=== PATIENT | male | born 1995 | race Caucasian/White ===

== ENCOUNTER 2019-11-03 12:20 | Emergency (ER) | payer OTHER ==
[~2019-11-03] VITALS: Ht 165.1 cm; Wt 68.0 kg
--- NOTE | 2019-11-03 13:01 | NUR ---
officer mann #[id number] and sitter at bedside
--- NOTE | 2019-11-03 13:01 | NUR ---
ELLA RA 38 "WAS [employer]ING [employer] - [employer] RESPONDED AND HE BIT 2 OFFICERS". TO ER BED 15, HOOKED TO MONITOR, PATIENT CALM WHEN PLACED IN BED. 2 OFFICERES AT BEDSIDE, AWAITING MD HO.
--- NOTE | 2019-11-03 13:12 | NUR ---
DR REYES AT BEDSIDE
--- NOTE | 2019-11-03 14:05 | NUR ---
Patient discharged in custody in stable condition. Written and verbal after care instructions given to VARGHESE.
[2019-11-03 14:06] VITALS: BP 119/71
== END 2019-11-03 14:08 ==
LOC: ER 12:21
DX: T75.4XXA Electrocution, initial encounter (principal); R45.1 Restlessness and agitation; Z59.0 Homelessness; W86.8XXA Exposure to other electric current, initial encounter; Y93.89 Activity, other specified; Y92.89 Other specified places as the place of occurrence of the external cause; Y99.8 Other external cause status